=== PATIENT | male | born 1990 | race American Indian/Alaskan Native ===

== ENCOUNTER 2019-06-04 13:15 | Emergency (ER) | payer OTHER ==
--- NOTE | 2019-06-04 13:31 | Emergency Department Report ---
Blank Doc - Documentation Documentation: 29-year-old male that presents with left thumb pain after fall. Exam: patient is diaphoretic with severe pain. B/P at 200/100. This initial assessment/diagnostic orders/clinical plan/treatment(s) is/are subject to change based on patient's health status, clinical progression and re- assessment by fellow clinical providers in the ED. Further treatment and workup at subsequent clinical providers discretion. Patient/guardians urged not to elope from the ED as their condition may be serious if not clinically assessed and managed. Initial orders include: 1- Patient sent to MAIN for further evaluation and treatment 2- labs 3- EKG 4- xrays
[2019-06-04] MEDS ORDERED: MORPHINE 4 MG/1 ML INJ IV ONE (13:32)
[2019-06-04 13:36] VITALS: BP 125/75
[2019-06-04] MEDS ORDERED: MORPHINE 2 MG/1 ML INJ ONE (13:40)
--- NOTE | 2019-06-04 15:12 | XRay Report ---
XR hand 3+V LT INDICATION / CLINICAL INFORMATION: hand pain s/p fall. COMPARISON: None available. FINDINGS: BONES/JOINT(S): No acute fracture or subluxation. No significant degenerative changes. SOFT TISSUES: There is mild soft tissue swelling around the thenar eminence without radiopaque foreig n body. ADDITIONAL FINDINGS: None. Signer Name: Omero Salas MD Signed: 06/04/2019 3:07 PM Workstation Name: [id number]
--- NOTE | 2019-06-04 16:11 | Emergency Department Report ---
ED Upper Extremity Inj HPI - General Chief Complaint: Extremity Injury, Upper Stated Complaint: FINGER PAIN Time Seen by Provider: 06/04/19 13:28 Source: patient Mode of arrival: Ambulatory Limitations: No Limitations - History of Present Illness Initial Comments: Is is a 29-year-old -[place] male who presents to the emergency room with pain and swelling left palm. Patient states he was walking a trail today when he slipped and fell landing with his hands stretched out. Patient states he was trying to avoid with worsening his torn left rotator cuff. Patient states he is having difficulty moving left palm and it is very painful with movement. He reports pain is 10 out of 10 on pain scale. He denies numbness or tingling, weakness, bruising. MD Complaint: Injury to:: left, finger Onset/Timin -: minutes(s) Other Extremity Injury: Fingers: Left (1st) Other Injuries: none Handedness: right Place: outdoors Severity scale (0 -10): 10 Improves With: immobilization Worsens With: movement of extremity Context: fall Associated Symptoms: denies other symptoms - Related Data Allergies Allergy/AdvReac Type Severity Reaction Status Date / Time No Known Allergies Allergy Unverified 06/04/19 13:42 ED Review of Systems ROS: Stated complaint: FINGER PAIN Other details as noted in HPI Constitutional: denies: chills, fever Respiratory: denies: cough, shortness of breath, wheezing Cardiovascular: denies: chest pain, palpitations Musculoskeletal: joint swelling, arthralgia (left palm pain and swelling). denies: back pain Skin: denies: rash, lesions Neurological: denies: headache, weakness, paresthesias Psychiatric: denies: anxiety, depression ED Past Medical Hx - Past Medical History Previous Medical History?: No - Surgical History Past Surgical History?: No ED Physical Exam - General Limitations: No Limitations General appearance: alert, in no apparent distress - Respiratory Respiratory exam: Present: normal lung sounds bilaterally. Absent: respiratory distress - Cardiovascular Cardiovascular Exam: Present: regular rate, normal rhythm. Absent: systolic murmur, diastolic murmur, rubs, gallop - GI/Abdominal GI/Abdominal exam: Present: soft, normal bowel sounds - Expanded Upper Extremity Exam Left Forearm Wrist exam: Present: normal inspection, full ROM Hand Wrist exam: Present: tenderness (tenderness and swelling over 1st metacarpal, limited ROM), swelling. Absent: full ROM (limited range of motion first phalanx), laceration, ecchymosis, deformity, crepidus, dislocation, erythema, amputation, nail avulsion, subungual hematoma Neuro motor exam: Present: wrist extension intact, thumb opposition intact, fingers 2-5 abduction intact. Absent: thumb IP flexion intact, thumb adduction intact Neurosensory exam: Present: radial nerve intact, ulnar nerve intact, median nerve intact Vascular: Present: normal capillary refill (brisk), radial pulse (2+) - Neurological Exam Neurological exam: Present: alert, oriented X3, normal gait - Expanded Neurological Exam Expanded Upper motor neuron: Raul Neglect: Normal, Pronator Drift: Normal, Babinski Sign: Normal, Sensory Extinction: Normal Sensory exam: Upper Extremity Light Touch: Normal, Upper Extremity Pin Prick: Normal, Upper Extremity Temperature: Normal, UE 2 Point Discrimination: Normal Motor strength exam: LUE: 5 ED Course Vital Signs 06/04/19 13:35 Temperature 98 F Pulse Rate 51 L Respiratory 16 Rate Blood Pressure 125/75 [Right] O2 Sat by Pulse 98 Oximetry ED Medical Decision Making - Radiology Data Radiology results: report reviewed XR hand 3+V LT INDICATION / CLINICAL INFORMATION: hand pain s/p fall. COMPARISON: None available. FINDINGS: BONES/JOINT(S): No acute fracture or subluxation. No significant degenerative changes. SOFT TISSUES: There is mild soft tissue swelling around the thenar eminence without radiopaque foreign body. ADDITIONAL FINDINGS: None. - Medical Decision Making Patient was examined by me. Patient is nontoxic appearing and stable. Vitals are normal. Obtained x-ray of left hand with no acute radiographic findings. There are moderate with swelling to left first metacarpal, decreased range of motion, tenderness on palpation. A frog splint was applied to left first finger. Physical findings susceptible of strain or sprain of left thumb. Patient informed of results. Instructed to take Tylenol or ibuprofen for pain. Follow up with PCP or return to the ER with worsening symptoms. Patient discharged home in stable condition. Critical care attestation.: If time is entered above; I have spent that time in minutes in the direct care of this critically ill patient, excluding procedure time. ED Disposition Clinical Impression: Pain of left thumb Fall Qualifiers: Encounter type: initial encounter Qualified Code(s): W19.XXXA - Unspecified fall, initial encounter Sprain of finger, left Qualifiers: Encounter type: initial encounter Finger: thumb Sprain of finger site: metacarpophalangeal joint Qualified Code(s): S63.642A - Sprain of metacarpophalangeal joint of left thumb, initial encounter Disposition: TO HOME OR SELFCARE Is pt being admited?: No Condition: Stable Instructions: Finger Sprain (ED) Additional Instructions: Rest Use ice or heat on affected area for 20 minutes and off for 2 hours. Take pain medication every 6-8 hours as needed for pain. Follow up with Primary Care Provider in 2-3 days. Referrals: [facility] [Outside] - 3-5 Days [facility] [Outside] - 3-5 Days [facility] [Outside] - 3-5 Days DANIEL DALY MD [Staff Physician] - 3-5 Days Forms: Work/School Release Form(ED) Time of Disposition: 16:11
== END 2019-06-04 16:23 | disposition home or self-care (01) ==
LOC: ED 13:15
DX: S63.642A Sprain of metacarpophalangeal joint of left thumb, initial encounter (principal); W01.198A Fall on same level from slipping, tripping and stumbling with subsequent striking against other object, initial encounter; Y93.89 Activity, other specified; Y92.89 Other specified places as the place of occurrence of the external cause; Y99.8 Other external cause status
CPT/HCPCS: 29130; 73130; 96374; 99283; J2270